=== PATIENT | female | born 1940 | race Caucasian/White ===

== ENCOUNTER 2020-08-16 16:00 | Emergency (ER) | payer MEDICARE, SELFPAY ==
[2020-08-16 16:04] VITALS: BP 132/84; PULSE 70; RESP 17; TEMP 37.1; O2SAT 98; BMI 30.7
--- NOTE | 2020-08-16 16:43 | EX.ED.GENINJ ---
HPI History of Present Illness Chief Complaint: Laceration Informant: patient Narrative Narrative: Patient was cutting her bushes with a machine ii trimmer and patient cut her left third and fourth finger. This occurred about 2 hours ago. She sustained lacerations to the finger pads of the third and fourth finger on the left hand. She was able to stop the bleeding at home. Her last tetanus is unknown. She denies any loss of function of the fingers. PFSH PFSH Home Medications biotin 10,000 mcg PO DAILY 06/11/14 [History Last Taken Unknown] hydrochlorothiazide 12.5 mg PO DAILY 04/27/17 [History Last Taken Unknown] losartan 100 mg PO DAILY 04/27/17 [History Last Taken Unknown] Allergy/AdvReac Type Severity Reaction Status Date / Time acetaminophen [From Vicodin] AdvReac Itching Verified 08/16/20 16:03 hydrocodone [From Vicodin] AdvReac Itching Verified 08/16/20 16:03 Social History Smoking Status: Never smoker ROS ROS ED Constitutional Constitutional ED: Denies chills or fever(s) Eyes Eyes: Denies blurry vision, change in vision or diplopia ENT ENT ED: Denies ear pain, rhinorrhea or sore throat Cardiovascular Cardiovascular: Denies chest pain or palpitations Respiratory/Chest Respiratory/Chest: Denies cough, dyspnea or sputum Gastrointestinal Gastrointestinal: Denies abdominal pain, diarrhea, nausea or vomiting Genitourinary Genitourinary ED: Denies dysuria, hematuria or urinary frequency Musculoskeletal Musculoskeletal: Denies back pain or neck pain Integumentary Reports other Details: Laceration Neurologic Neurologic: Denies headache(s), numbness or weakness Psychiatric Psychiatric: Denies anxiety or depression Endocrine Endocrinology: Denies polydipsia or polyuria EXAM Physical Exam Const Vital Signs: 08/16/20 16:04 Temperature 98.7 F Temperature Source Temporal Pulse Rate 70 Respiratory Rate 17 Blood Pressure 132/84 H Blood Pressure Mean 100 Pulse Ox 98 Oxygen Delivery Method Room Air Positive well nourished and well developed General Appearance ED: well developed HEENT atraumatic and trauma Eyes PERRL Neck full ROM Extremity normal to inspection and full ROM General Extremety ED: Negative for tenderness Neuro oriented x3 and CN's II-XII intact bilaterally Sensorium / Orientation: alert Motor Exam: strength 5/5 throughout Psych mental status grossly normal Skin Skin Narrative: The left third finger has 2, 1.5 cm lacerations on the finger pad. The fourth finger has a 1 cm laceration and a 0.25 cm laceration on the finger pad. PROC Procedures Lacerations Left third finger first laceration: Length: 0.79 in Depth: Skin Prep: Chlorhexadine Laceration repair: Lidocaine and Skin sutures Number of Sutures/[place]: 3 Suture Information: Ethilon and 5-0 Left third finger second laceration: Length: 0.98 in Depth: Skin Prep: Chlorhexadine Laceration repair: Lidocaine and Skin sutures Number of Sutures/[place]: 7 Suture Information: Ethilon and 5-0 Left fourth finger third laceration: Length: 0.39 in Depth: Skin Prep: Chlorhexadine Laceration repair: Lidocaine and Skin sutures Number of Sutures/[place]: 2 Suture Information: Ethilon and 5-0 Left fourth finger fourth laceration: Length: 0.39 in Depth: Skin Prep: Chlorhexadine Laceration repair: Lidocaine and Skin sutures Number of Sutures/[place]: 2 Suture Information: Ethilon and 5-0 MDM MDM MDM Narrative Medical decision making narrative: The patient's lacerations were cleansed. Her tetanus was updated. A total of 14 sutures were placed between the 2 fingers. She will have these in for 7 to 10 days. She will use topical antibacterial cream and will follow up with her PCP. Discharge Plan Triage Chief Complaint: Laceration ED Provider: Mansoor Riojas Dx/Rx/DC Orders Clinical Impression: Laceration of left ring finger with complication, Laceration of left middle finger with complication Instructions: ED Laceration, Hand: All Closures Prescriptions: No Action biotin 5 MG capsule 10,000 mcg PO DAILY RF: 0 hydrochlorothiazide 12.5 MG capsule 12.5 mg PO DAILY RF: 0 losartan 100 MG tablet 100 mg PO DAILY RF: 0 Primary Care Provider: Fortino Rincon Referrals: Fortino Rincon MD [Primary Care Provider] - Disposition Disposition: Home, self care
[2020-08-16] MEDS: Lidocaine 1% (20 ml mdv) 20 ML Vial INFILT (16:57)
[2020-08-16] MEDS: Diphth,Pertuss(Acell),Tet Vac 0.5 ML Vial IM (16:57)
[2020-08-16 18:08] VITALS: BP 135/88; PULSE 54; RESP 18
== END 2020-08-16 18:10 | disposition home or self-care (01) ==
LOC: ED 17:45
PROVIDERS: Emergency Provider Emergency Medicine; PCP Family Medicine
DX: S61.213A Laceration without foreign body of left middle finger without damage to nail, initial encounter (principal); S61.215A Laceration without foreign body of left ring finger without damage to nail, initial encounter; W29.3XXA Contact with powered garden and outdoor hand tools and machinery, initial encounter; Y93.9 Activity, unspecified; Y92.9 Unspecified place or not applicable
CPT/HCPCS: 12002; 90471; 90715; 99284

== ENCOUNTER 2020-11-15 14:47 | Emergency (ER) | payer MEDICARE, SELFPAY ==
[2020-11-15 14:48] VITALS: BP 114/66; PULSE 63; RESP 18; TEMP 36.9; O2SAT 98; BMI 30.2
--- NOTE | 2020-11-15 15:08 | RAD_ITS ---
STUDY: X-RAY - LEFT ANKLE REASON FOR EXAM: Female, 80 years old. INJURY -- WAITING ROOM TECHNIQUE: 3 view(s) of the ankle. COMPARISON: None. FINDINGS: Normal visualized distal tibia and fibula. Tiny avulsion fracture at the tip of the lateral malleolus. Normal tibiotalar articulation and ankle mortise. Normal visualized talus and calcaneus. The visualized subtalar, talonavicular, calcaneocuboid and tarsal articulations are normal. Soft tissue swelling overlying the lateral malleolus. RAD/Ankle min 3 Views IMPRESSION: Tiny avulsion fracture at the tip of the lateral malleolus with overlying soft tissue swelling. Electronically Signed: Sukhjinder Clay MD at 15:23 EDT , Service support ,
--- NOTE | 2020-11-15 16:01 | EX.ED.GENINJ ---
HPI History of Present Illness Chief Complaint: Lower Extremity Injury Informant: patient Narrative Narrative: 80-year-old female presents to the emergency department with injury to the left ankle and foot. Patient states that she was sitting in a recliner when her left foot fell asleep. She stood up and sustained an inversion injury. She denies any other injuries. [facility] Medical History (Updated 11/15/20 @ 16:[address] Darek Brar DO) Hypertension Home Medications biotin 10,000 mcg PO DAILY 06/11/14 [History Last Taken Unknown] hydrochlorothiazide 12.5 mg PO DAILY 04/27/17 [History Last Taken Unknown] losartan 100 mg PO DAILY 04/27/17 [History Last Taken Unknown] oxycodone-acetaminophen 1 tab PO Q6H PRN PRN 3 Days #12 tablet 11/15/20 [Rx Last Taken Unknown] Allergy/AdvReac Type Severity Reaction Status Date / Time acetaminophen [From Vicodin] AdvReac Itching Verified 11/15/20 14:48 hydrocodone [From Vicodin] AdvReac Itching Verified 11/15/20 14:48 Social History (Updated 11/15/20 @ 16:[address] Darek Brar, ) Smoking Status: Never smoker substance use type: does not use ROS ROS ED Constitutional Constitutional ED: Denies chills or weight loss Eyes Eyes: Denies change in vision or diplopia ENT ENT ED: Denies ear pain, rhinorrhea or sore throat Cardiovascular Cardiovascular: Denies chest pain, orthopnea, palpitations or racing heartbeat Respiratory/Chest Respiratory/Chest: Denies cough, dyspnea or orthopnea Gastrointestinal Gastrointestinal: Denies abdominal pain, diarrhea, nausea or vomiting Genitourinary Genitourinary ED: Denies dysuria, hematuria or urinary frequency Musculoskeletal Musculoskeletal: Reports other Details: See history of present illness ; Denies arthralgias or myalgias Integumentary Denies abscess or rash Neurologic Neurologic: Denies headache(s) or weakness Psychiatric Psychiatric: Denies anxiety, depression, suicidal ideation or suicidal thoughts Endocrine Endocrinology: Denies polydipsia, polyphagia or polyuria Allergic/Immunologic Allergic/Immunologic ED: Denies mouth swelling, tongue swelling or urticaria EXAM Physical Exam Const Vital Signs: 11/15/20 14:48 Temperature 98.4 F Temperature Source Temporal Pulse Rate 63 Respiratory Rate 18 Blood Pressure 114/66 Blood Pressure Mean 82 Pulse Ox 98 Oxygen Delivery Method Room Air Positive well nourished and well developed General Appearance ED: well developed HEENT Reports normocephalic, head/scalp atraumatic and moist mucous membranes Eyes PERRL and EOMs intact bilaterally Neck no lymphadenopathy, supple and no JVD Resp normal respiratory effort and clear to auscultation bilaterally Cardio regular rate, regular rhythm and no murmurs GI normal to inspection, nondistended, normoactive bowel sounds and non-tender Palpation: soft Back/Spine no CVA tenderness and normal ROM Extremity Extremity Narrative: There is swelling and tenderness over the fifth metatarsal and the lateral malleolus. Neurovascular intact. General Extremety ED: Negative for edema General Extremity: Negative for edema Neuro oriented x3 and CN's II-XII intact bilaterally Sensorium / Orientation: alert Motor Exam: strength 5/5 throughout Psych mental status grossly normal Mood & Affect: Negative for depressed or tearful Skin no rashes or lesions noted and no wounds MDM MDM MDM Narrative Medical decision making narrative: My interpretation of the plain films of the left ankle there was obtained through nursing protocol is a small avulsion off the lateral malleolus with soft tissue swelling as well as a pseudo-Garibay fracture. The case was discussed with on-call podiatry Dr. Souza. Patient will be placed in a walking boot. She has a walker at home. I will write for some pain medication. Follow-up in the office Radiography Diagnostic Testing: Radiology Impression Ankle X-Ray 11/15/20 15:08 IMPRESSION: Tiny avulsion fracture at the tip of the lateral malleolus with overlying soft tissue swelling. Electronically Signed: Sukhjinder Clay MD at 15:23 EDT , Service support , Discharge Plan Triage Chief Complaint: Lower Extremity Injury Other Complaint: Fall ED Provider: Darek Brar Dx/Rx/DC Orders Clinical Impression: Ankle fracture, lateral malleolus, closed, Closed fracture of fifth metatarsal bone Instructions: ED Ankle Fracture, ED Fracture, Foot Prescriptions: New oxycodone-acetaminophen [oxycodone-acetaminophen] 1 TABLET tablet 1 tab PO Q6H PRN PRN (Reason: Pain) 3 Days Qty: 12 RF: 0 No Action biotin 5 MG capsule 10,000 mcg PO DAILY RF: 0 hydrochlorothiazide 12.5 MG capsule 12.5 mg PO DAILY RF: 0 losartan 100 MG tablet 100 mg PO DAILY RF: 0 Primary Care Provider: Fortino Rincon Referrals: Deepti Souza DPM [STAFF PHYSICIAN] - As soon as possible Fortino Rincon MD [Primary Care Provider] - Disposition Disposition: Home, Self Care
[2020-11-15 16:42] VITALS: RESP 16
== END 2020-11-15 16:43 | disposition home or self-care (01) ==
PROVIDERS: Emergency Provider Emergency Medicine; PCP Family Medicine
DX: S82.62XA Displaced fracture of lateral malleolus of left fibula, initial encounter for closed fracture (principal); S92.352A Displaced fracture of fifth metatarsal bone, left foot, initial encounter for closed fracture; X50.1XXA Overexertion from prolonged static or awkward postures, initial encounter; Y93.9 Activity, unspecified; Y92.9 Unspecified place or not applicable; I10 Essential (primary) hypertension; Z79.899 Other long term (current) drug therapy
CPT/HCPCS: 73610; 99283

== ENCOUNTER 2020-12-09 17:22 | Outpatient (CLI) | payer MEDICARE, SELFPAY ==
[2020-12-09] MEDS: 0.9% Saline Lock 10 ML Syringe IV (17:38)
[2020-12-09 17:50] VITALS: BP 123/85; PULSE 59; RESP 16; TEMP 37.1; O2SAT 98; BMI 30.2
[2020-12-09 18:20] VITALS: BP 141/96; PULSE 65; RESP 16; TEMP 37.1; O2SAT 98
[2020-12-09 19:03] VITALS: BP 134/86; PULSE 60; RESP 16; TEMP 36.7; O2SAT 99
== END 2020-12-09 19:20 | disposition home or self-care (01) ==
LOC: ICUOUT 17:27 → MS2 17:28
PROVIDERS: PCP Family Medicine; Referring Provider Nurse Practitioner Acute Care; Visit Provider Nurse Practitioner Acute Care
DX: Z23 Encounter for immunization (principal); U07.1 COVID-19
CPT/HCPCS: J7050; M0243; A4216; Q0244

== ENCOUNTER 2021-03-14 08:00 | Outpatient (RCR) | payer MEDICARE, SELFPAY ==
--- NOTE | 2021-02-12 10:21 | HP.PTEVAL_ITS ---
Patient's Visit Information JORGE NORTON is a 80 year old F referred to Physical Therapy by Dr. Deepti Souza DPM with a diagnosis of 5th metatarsal healing fracture. Date of Evaluation: 02/12/21 Physical Therapist: Gloria Mcdowell DPT - Visit Plan Frequency: 2x /Week Duration: 4 Weeks Plan: Focus on LE and core strength/stabilization- functional mobility and balance. HEP Given IE: Std HR/TR, SLS, seated TA contraction, glut sets, hip add - Subjective November 15, 2020 she broke her foot- got out of her chair- she just got out of the boot last Wednesday. She has decreased balance and 4 pins in her back- she is now out of whack due to the boot. She asked for PT and would like to work on her balance. She has bilateral shoulder replacements and the right is okay but the left is not so good and the MD doesn't want her to work on the left shoulder. She has no pain or problems with the foot but she can't walk a distance. Fully I prior to fracture without a AD. She uses a straight cane in the community. She is driving and back to normal activities but is not back to the rec center or walking distances. Before she was going 5 days a week- machine weights and stationary bike- would like to be able to get back to do t hat. She feels that she is back to 60% of normal. She feels that she has weakness in the back- she has to hold the cart due to her back. She has no N/T in her bilateral LE at this time. She is in/out of the boot at this time. PMHx: bilateral shoulder replacement, bilateral TKR, back surgery, right foot surgery. Lives alone- single story with a basement- she uses a railing and goes down to sow daily. - Objective Posture: FH, RS, increased kyphosis- can correct with verbal and tactile cues but does not maintain. Gait: antalgic- decreased stance on the left LE- st raight cane. Balance: see FGA. HR/TR: able. SLS: 3 sec then LOB. ROM: DF: 10 degrees, PF: 60 degrees, Inv: 30 degrees, Ev: 10 degrees. Strength: Core: poor, Hip: 4-/5, Knee: 4+/5, Ankle: 5/5. Flex: HS: severe, Gastroc: severe - Balance/Special Test Scores Functional Gait Assessment Score: 14 % Disability: 53.3400 Lower Extremity Functional Score: 30 TUG Test Time Seconds: 12.8 30 Second Chair Rise Test Seconds: 10 - Goals Goal 1:: Patient will be I with HEP and progression Goal Time Frame: 4-6 Weeks Goal 2:: Patient will perform 12 sit to stands in 30 sec to demo age equiv Goal Time Frame: 4-6 Weeks Goal 3:: Patient will improver her FGA to within normal ranges for her age Goal Time Frame: 4-6 Weeks Goal 4:: Patient will report 90% back to her baseline before the fracture Goal Time Frame: 4-6 Weeks Goal 5:: Patient will ambulate <300 feet with a normalized gait pattern and LRD Goal Time Frame: 4-6 Weeks - Rehabilitation Potential Physical Therapy Diagnosis: Patient presents with hypomobility- she has decreased LE and core strength, proprioception, flex and muscular endurance leading to poor posture, balance and decreased ability to perform ADL's. Rehabilitation Potential: Good - Anticipated Interventions Patient/Client Instruction: Educate patient on: Benefits of Fitness Program Therapeutic Exercise to Include: Strength training, Endurance training, Balance training, Agility training, Body mechanics, Postural training, Flexibilty training, Gait and locomotor training, Neuromotor development, Dynamic Lumbar Stabilization, Scapular Strength/Stabilization Thank you for the opportunity to evaluate your patient. For Medicare and Medicare HMO plans, please review the plan of care and approve it. It will need to be FAXED BACK to us at [phone] for Medicare purposes. For Medicare only, by signing this I certify the plan of care. Please let me know if there are questions or concerns regarding this plan of care. Physician Signature: Date:
--- NOTE | 2021-03-14 08:15 | HP.PTDCSUM ---
It has been my pleasure to treat JORGE NORTON referred by Dr. Deepti Souza DPM, with the diagnosis of 5th metatarsal healing fracture - L foot for a total of 9 visit(s). Discharge Date: Please see the following information for a summary of their discharge status. Subjective: Patient reports that the break itself is healed but she still has to wear a supportive shoe. She reports that she is having pain in her toes- burning sensation. MD wants to do nerve conduction study but pt does not want to have the test done. She was encouraged to see a specialist but she has seen them before and they tell her there is nothing that she can do. % Improvement: 100 Objective/Function: Posture: FH, RS, increased kyphosis- can correct with verbal and tactile cues but does not maintain. Gait: antalgic- equal stance time but does have a lumbar shift- no AD. Balance: see FGA. HR/TR: able. SLS: 3 sec then LOB. ROM: DF: 10 degrees, PF: 60 degrees, Inv: 30 degrees, Ev: 10 degrees. Strength: Core: poor, Hip: 4/5, Knee: 5/5, Ankle: 5/5. Flex: HS: mod, Gastroc: mod Goal 1:: Patient will be I with HEP and progression Goal Progress: Goal Met Goal 2:: Patient will perform 12 sit to stands in 30 sec to demo age equiv Goal Progress: Goal Met Goal 3:: Patient will improver her FGA to within normal ranges for her age Goal Progress: Progressing Goal 4:: Patient will report 90% back to her baseline before the fracture Goal Progress: Goal Met Goal 5:: Patient will ambulate <300 feet with a normalized gait pattern and LRD Goal Progress: Progressing Plan: Focus on LE and core strength/stabilization- functional mobility and balance If there are questions or concerns regarding this patient's physical therapy, please feel free to call me at [phone]. Thank you for the referral of this patient. Sincerely, Gloria Mcdowell DPT Balance/Gait/Functional tests - Balance/Special Test Scores Functional Gait Assessment Score: 14 % Disability: 53.3400 Lower Extremity Functional Score: 34 TUG Test Time Seconds: 9 Tug Test: <10 sec.=free mobile 30 Second Chair Rise Test Seconds: 12
== END 2021-03-14 15:18 | disposition home or self-care (01) ==
LOC: PT 08:00
PROVIDERS: PCP Family Medicine; Referring Provider Podiatrist; Visit Provider Podiatrist
DX: S92.352D Displaced fracture of fifth metatarsal bone, left foot, subsequent encounter for fracture with routine healing (principal); M54.10 Radiculopathy, site unspecified
CPT/HCPCS: 97110; 97162; 97164